=== PATIENT | male | born 1960 | race Caucasian/White ===

== ENCOUNTER 2018-07-14 08:55 | Day surgery (SDC) | payer BC ==
[~2018-07-14 08:55] MED LIST: Lactated Ringers 1,000 ML IV SCH; Lidocaine 1%/Sod Bicarbonate in NS 8.4% 1 ML Syringe IDERM PRN; Sodium Chloride 0.9% 10 ML Syringe FLUSH PRN
--- NOTE | 2018-07-14 09:30 | PCM.PREANE ---
Preanesthetic Assessment - Anesthesia/Transfusion/Family Hx Anesthesia History: Prior Anesthesia Without Reaction Family History of Anesthesia Reaction: No Transfusion History: No Prior Transfusion(s) - Review of Systems General: No Symptoms Pulmonary: No Symptoms Cardiovascular: No Symptoms Gastrointestinal: No Symptoms Neurological: No Symptoms Other: Reports: None - Physical Assessment NPO Status Date: 07/13/18 NPO Status Time: 00:00 Pulse: 58 O2 Sat by Pulse Oximetry: 95 Respiratory Rate: 16 Blood Pressure: 114/78 Temperature: 36.3 C Vital Signs: Last Vital Signs Temp 36.3 C 07/14/18 09:00 Pulse 58 L 07/14/18 09:00 Resp 16 07/14/18 09:00 BP 114/78 07/14/18 09:00 Pulse Ox 95 07/14/18 09:00 Height: 1.85 m Weight: 80.785 kg ASA Class: 2 Mental Status: Alert & Oriented x3 Airway Class: Mallampati = 1 Dentition: Reports: Normal Dentition, [place](s) Thyro-Mental Finger Breadths: 3 Mouth Opening Finger Breadths: 3 ROM/Head Extension: Full Lungs: Clear to Auscultation, Normal Respiratory Effort Cardiovascular: Regular Rate, Regular Rhythm - Imaging/EKG Impressions: EKG SR on chart rate 62 - Allergies Allergies/Adverse Reactions: Allergies Allergy/AdvReac Type Severity Reaction Status Date / Time [id number] Reductase Allergy Muscle Verified 07/13/18 12:51 Inhibitor Aches - Blood Blood Available: No Product(s) Available: None - Anesthesia Plan Pre-Op Medication Ordered: None - Acknowledgements Anesthesia Type Planned: General Anesthesia Pt an Appropriate Candidate for the Planned Anesthesia: Yes Alternatives and Risks of Anesthesia Discussed w Pt/Guardian: Yes Pt/Guardian Understands and Agrees with Anesthesia Plan: Yes PreAnesthesia Questionnaire HEENT History: Reports: Impaired Vision, Other (See Below) Other HEENT History: glasses Cardiovascular History: Reports: None Respiratory History: Reports: Sleep Apnea Gastrointestinal History: Reports: Hemorrhoids, Hiatal Hernia, Other (See Below) Other Gastrointestinal History: Levin's, dysphagia COOK RELIEF History: Reports: None Musculoskeletal History: Reports: Gout, Other (See Below) Other Musculoskeletal History: lumbago Neurological History: Reports: None Psychiatric History: Reports: Depression Endocrine/Metabolic History: Reports: None Hematologic History: Reports: None Immunologic History: Reports: None Oncologic (Cancer) History: Reports: None Dermatologic History: Reports: None - Past Surgical History HEENT Surgical History: Reports: Tonsillectomy Cardiovascular Surgical History: Reports: None Respiratory Surgical History: Reports: None GI Surgical History: Reports: Cholecystectomy, Colonoscopy, EGD, Gerald Fundoplication Male Surgical History: Reports: Vasectomy Endocrine Surgical History: Reports: None Neurological Surgical History: Reports: None Musculoskeletal Surgical History: Reports: Other (See Below) Other Musculoskeletal Surgeries/Procedures:: ankle fracture with surgery, right arm surgery Oncologic Surgical History: Reports: None Dermatological Surgical History: Reports: None - SUBSTANCE USE Smoking Status *Q: Former Smoker Tobacco Use Within Last Twelve Months: Cigarettes (05/15/2018) Second Hand Smoke Exposure: Yes Days Per Week of Alcohol Use: 7 Number of Drinks Per Day: 2 Total Drinks Per Week: 14 Recreational Drug Use History: No - HOME MEDS Home Medications: Home Meds Escitalopram Oxalate 10 mg PO DAILY 07/13/18 [History] Zolpidem Tartrate 10 mg PO BEDTIME PRN 07/13/18 [History] Acetaminophen [Tylenol] 650 mg PO ASDIRECTED PRN 07/14/18 [History] - CURRENT (IN HOUSE) MEDS Current Meds: Current Medications Lactated Ringer's (Ringers, Lactated) 1,000 mls @ 125 mls/hr IV ASDIRECTED YOSEF Stop: 07/14/18 23:00 Lidocaine/Sodium Bicarbonate (Buffered Lidocaine 1% In Ns 8.4%) 0.25 ml IDERM ONETIME PRN PRN Reason: Prior to IV Start Stop: 07/14/18 18:00 Sodium Chloride (Saline Flush) 10 ml FLUSH ASDIRECTED PRN PRN Reason: Keep Vein Open Stop: 07/14/18 18:00
[2018-07-14] MEDS ORDERED: Lidocaine 1% with EPINEPHrine 1:100,000 20 ML MDV ONE ×2 (10:03→10:05)
[2018-07-14] MEDS ORDERED: Bupivacaine 0.5%/EPINEPHrine 1:200,000 50 ML MDV ONE (10:03)
[2018-07-14] MEDS ORDERED: fentaNYL 100 MCG/2 ML SDV ONE (11:00)
[2018-07-14] MEDS ORDERED: Propofol 200 MG/20 ML SDV ONE (11:00)
[2018-07-14] MEDS ORDERED: Lidocaine 1% PF 2 ML SDV ONE (11:00)
[2018-07-14] MEDS ORDERED: ceFAZolin 1 GM Vial ONE (12:14)
[2018-07-14] MEDS ORDERED: Lactated Ringers 1,000 ML ONE (12:14)
[2018-07-14] MEDS ORDERED: Ketorolac 30 MG/ML SDV ONE (12:14)
[2018-07-14] MEDS ORDERED: Ondansetron 4 MG/2 ML SDV ONE (12:14)
[2018-07-14] MEDS ORDERED: Dexamethasone 4 MG/ML SDV ONE (12:14)
[2018-07-14] MEDS ORDERED: Midazolam 1 MG/ML 2 ML SDV ONE (12:14)
[2018-07-14] MEDS ORDERED: Rocuronium 50 MG/5 ML Vial ONE ×2 (12:14→12:57)
[2018-07-14] MEDS ORDERED: fentaNYL 250 MCG/5 ML SDV ONE (12:15)
[2018-07-14] MEDS ORDERED: HYDROmorphone 0.5 MG/0.5 ML Syringe ONE (12:16)
[2018-07-14] MEDS ORDERED: fentaNYL 100 MCG/2 ML SDV IVPUSH PRN (12:52)
[2018-07-14] MEDS ORDERED: HYDROmorphone 0.5 MG/0.5 ML Syringe IVPUSH PRN (12:52)
[2018-07-14] MEDS ORDERED: Ondansetron 4 MG/2 ML SDV IVPUSH PRN (12:52)
[2018-07-14] MEDS ORDERED: ePHEDrine 50 MG/ML SDV IVPUSH PRN (12:52)
[2018-07-14] MEDS ORDERED: diphenhydrAMINE 50 MG/ML SDV IVPUSH PRN (12:52)
[2018-07-14] MEDS ORDERED: Phenylephrine/Normal Saline 100 MCG/ML 10 ML Syringe ONE (12:52)
[2018-07-14] MEDS ORDERED: Phenylephrine 1 MG in Sodium Chloride 0.9% 10 ML IV SCH (13:00)
[2018-07-14] MEDS ORDERED: Neostigmine Methylsulfate 1 MG/ML 5 ML Syringe ONE (13:52)
--- NOTE | 2018-07-14 14:22 | PCM.OPNOTE ---
- General Post-Op/Procedure Note Date of Surgery/Procedure: 07/14/18 Operative Procedure(s): Laparoscopic left inguinal hernia repair with mesh Findings: Large direct left inguinal hernia Pre Op Diagnosis: Left inguinal hernia Post-Op Diagnosis: Same Anesthesia Technique: General ET Tube Primary Surgeon: Yamile Khan Anesthesia Provider: Radha Nash Bioinformatician: Lulu Fu Reason Bioinformatician Was Necessary: N/A Role of Bioinformatician: Education Pathology: none Fluid Replacement, Intraop: 800 Output, Urine Amount: 0 EBL in mLs: 20 Complications: none apparent Condition: Good
--- NOTE | 2018-07-14 14:34 | PCM.PRNOTE ---
- Free Text/Narrative Note: Operative Report Date of surgery: July 14, 2018 Preoperative diagnosis: Left Inguinal hernia Postoperative diagnosis: same Procedure performed: 1. Diagnostic laparoscopy 2. Laparoscopic left inguinal hernia repair with mesh Surgeon: Dr. Yamile Khan Anesthesia: General ET Cotton Grader: Radha Nash CRNA Estimated blood loss: 20 mL IV fluids: 800 mL Urine output: 0 mL (patient voided prior to the case) Drains and lines: None Indication for the procedure: The patient is a 57-year-old gentleman who presented to my office with complaint of a symptomatic left inguinal hernia. I discussed a procedure of a laparoscopic left inguinal hernia repair with mesh with the patient. We discussed that the Risks of infection, bleeding and mesh complication was reviewed, and written consent was obtained Description of the procedure: The patient presented to the outpatient holding area on the day for procedure history and physical were verified and the consent was present and on the chart. He was taken back to the operating room and placed in supine position on the operating table. SCD boots were placed and functional prior to the service procedure. The patient received preoperative antibiotics as per SCIP protocol. The patient had successful induction of general anesthesia and was intubated without difficulty. The patient's arms were tucked and the pressure points were padded. The patient was prepped and draped in standard surgical fashion and a timeout was performed. The abdomen was draped with Ioban to begin. A 5 mm incision was then made in the left upper quadrant just under the subcostal margin. A 5 mm port was then inserted into the abdomen with the Visiport technique. The abdomen was insufflated to 15 mmHg. There was no evidence of any injury in the area where we had entered the abdomen. We proceeded to place a TAP block with mixed 1% lidocaine with epinephrine and 0.5% bupivacaine with epinephrine. We then surveyed the area of hernias in bilateral lower quadrants. A very large left inguinal hernia was noted. There was no apparent inguinal hernia on the right. The abdomen was desufflated with the 5 [address] left in place as a venting port. We proceeded to make an infraumbilical incision on the left side of the midline down to the level of the anterior rectus sheath. An incision was made through the anterior sheath and the rectus muscles were bluntly swept aside to expose the posterior sheath. The balloon dissector was then placed in to this area and extended down to the pelvis. The balloon dissector was then inflated while visualizing the dissection. Once we had sufficiently greater blunt dissection, the balloon was removed and the balloon port was then inflated to hold the port in place. Insufflation was attached and we inserted a camera to inspect the area. We proceeded to place two 5mm ports in the infraumbilical midline. We then turned our attention to the area of the hernia. There was significant scar tissue between the hernia sac and surrounding structures. We then proceeded to dissect the hernia sac away from the spermatic cord. After bluntly dissecting the hernia sac down as well as using the laparoscopic scissors to cut away some of the scar tissue, a large direct inguinal hernia defect was noted. The Bovie device was used for hemostasis as there were a few small bleeding vessels noted. A Ray-Ilene was placed into the dissected space to remove any blood and clear the visual field. The Ray-Ilene was promptly removed A large left-sided hernia mesh was then rolled and placed into the dissection cavity. It was tacked laterally to the abdominal wall and medially to Kiko's ligament and medially to the rectus abdominis muscle. We had good coverage over the hernia defect. The infraumbilical space was then desufflated and the abdomen was reinsufflated. The mesh was completely covered with peritoneum. The abdomen was then desufflated and the ports were removed. The fascial opening in the infraumbilical area was closed using a 0 Vicryl suture. The incision sites were then closed with 4-0 Monocryl suture. Dermabond surgical glue were used to cover the incisions. The patient tolerated the procedure well and was transported to the PACU in stable condition. All sponge and needle counts correct. Complications: None apparent. Disposition: Stable to PACU Yamile Khan MD General Surgery
--- NOTE | 2018-07-14 14:40 | PCM.POSTAN ---
POST ANESTHESIA ASSESSMENT - MENTAL STATUS Mental Status: Alert - VITAL SIGNS Pulse Rate: 64 SaO2: 98 (2LPM nasal cannula) Resp Rate: 9 Blood Pressure: 133/75 Temperature: 36.7 C - RESPIRATORY Respiratory Status: Respiratory Rate WNL, Airway Patent, O2 Saturation Stable, Supplemental Oxygen - CARDIOVASCULAR CV Status: Pulse Rate WNL, Blood Pressure Stable - GASTROINTESTINAL GI Status: No Symptoms - POST OP HYDRATION Hydration Status: Adequate & Stable
--- NOTE | 2018-07-14 15:08 | PCM48HPAN ---
Post Anesthesia Note - EVALUATION WITHIN 48HRS OF ANESTHETIC Vital Signs in Normal Range: Yes Patient Participated in Evaluation: Yes Respiratory Function Stable: Yes Airway Patent: Yes Cardiovascular Function Stable: Yes Hydration Status Stable: Yes Pain Control Satisfactory: Yes Nausea and Vomiting Control Satisfactory: Yes Mental Status Recovered: Yes
[2018-07-14] MEDS ORDERED: Acetaminophen/HYDROcodone 325-5 MG Tab PO PRN (15:19)
[2018-07-14 18:27] VITALS: BP 115/70
== END 2018-07-14 18:08 | disposition home or self-care (01) ==
LOC: JD.SDS 08:55
PROVIDERS: ATTEND Surgery
DX: K40.90 Unilateral inguinal hernia, without obstruction or gangrene, not specified as recurrent (principal); K21.9 Gastro-esophageal reflux disease without esophagitis; K29.70 Gastritis, unspecified, without bleeding; F32.9 Major depressive disorder, single episode, unspecified; G47.30 Sleep apnea, unspecified; Z79.899 Other long term (current) drug therapy; Z88.8 Allergy status to other drugs, medicaments and biological substances; Z87.891 Personal history of nicotine dependence; Z86.010 Personal history of colon polyps
CPT/HCPCS: 49650; A9270; J0131; J0690; J1100; J1170; J1885; J2001; J2250; J2370; J2405; J2704; J2710; J3010; J3490; J7120; 00830; C1781

== ENCOUNTER 2023-03-01 07:34 | Emergency (ER) | payer BC ==
[2023-03-01] MEDS ORDERED: diphenhydrAMINE 50 MG/ML SDV IVPUSH ONE (08:10)
[2023-03-01] MEDS ORDERED: Metoclopramide 10 MG/2 ML SDV IVPUSH ONE (08:10)
[2023-03-01] MEDS ORDERED: HYDROmorphone 1 MG/ML Syringe IVPUSH ONE (08:11)
[2023-03-01] MEDS ORDERED: Dextrose 5%-0.9% NaCl 1,000 ML IV SCH (08:15)
[2023-03-01] MEDS ORDERED: Ketorolac 30 MG/ML SDV IVPUSH SCH (08:15)
[2023-03-01] MEDS ORDERED: LORazepam 2 MG/ML SDV IVPUSH ONE (08:33)
[2023-03-01 09:10] LABS: APPEARANCE,URINE CLEAR (Clear); BILIRUBIN,URINE NEGATIVE (Negative); COLOR,URINE DARK YELLOW (Yellow); GLUCOSE,URINE NEGATIVE (Negative); KETONES,URINE TRACE (Negative); LEUKOCYTE ESTERASE,URINE NEGATIVE (Negative); NITRITE,URINE NEGATIVE (Negative); OCCULT BLOOD,URINE TRACE-INTACT (Negative); PROTEIN,URINE TRACE (Negative)
[2023-03-01 09:40] LABS: BACTERIA,URINE FEW /hpf (FEW); MUCUS,URINE FEW /hpf (FEW); RBC,URINE 0-5 /hpf (0-5)
[2023-03-01 11:24] VITALS: BP 117/78; PULSE 71
== END 2023-03-01 11:00 | disposition home or self-care (01) ==
LOC: JD.ED 07:34
DX: G43.909 Migraine, unspecified, not intractable, without status migrainosus (principal); M25.559 Pain in unspecified hip; G47.00 Insomnia, unspecified; Z79.899 Other long term (current) drug therapy; Z88.8 Allergy status to other drugs, medicaments and biological substances
CPT/HCPCS: 81001; 96361; 96374; 96375; 99284; J1170; J1200; J1885; J2060; J2765; J7042